=== PATIENT | female | born 1975 | race Caucasian/White ===

== ENCOUNTER → 2021-04-23 | Outpatient (CLI) | payer OTHER ==
[2021-04-23 16:43] LABS: HEMOGLOBIN 13.1 gm/dl (12.3-15.3); RED BLOOD COUNT 3.84 M/UL (4.00-5.10); WHITE BLOOD COUNT 3.8 K/UL (4.5-11.0)
[2021-04-23 17:00] LABS: BUN/CREATININE RATIO 13 (0-10)
== END ==
LOC: LAB 14:16
PROVIDERS: Nurse Practitioner Family
DX: M32.9 Systemic lupus erythematosus, unspecified (principal); M25.50 Pain in unspecified joint; D89.89 Other specified disorders involving the immune mechanism, not elsewhere classified; R76.8 Other specified abnormal immunological findings in serum; Z79.899 Other long term (current) drug therapy; Z92.29 Personal history of other drug therapy
CPT/HCPCS: 36415; 80053; 81001; 82570; 84156; 85025